=== PATIENT | female | born 1995 | race Native Hawaiian/Other Pacific Islander ===

== ENCOUNTER 2018-09-02 18:29 | Emergency (ER) | payer BC ==
[2018-09-02 18:30] VITALS: BMI 31.9
[2018-09-02 18:58] VITALS: BP 138/96; PULSE 83; RESP 18; TEMP 98; O2SAT 100
--- NOTE | 2018-09-02 19:42 | ED PDOC ---
Lower Extremity Pain/Injury Time Seen by Provider: 09/02/18 19:06 Chief Complaint (Nursing): Lower Extremity Problem/Injury Chief Complaint (Provider): Left Foot Pain History Per: Patient History/Exam Limitations: no limitations Onset/Duration Of Symptoms: Hrs (around 1600 today) Current Symptoms Are (Timing): Still Present Additional Complaint(s): 23 year old female presents to the ED for evaluation of left foot pain localized to the sole which began around 1600 today while standing at work. Patient notes that the pain initially was shooting up her leg, and worse when bearing weight. Denies fall, injury, numbness, and tingling. A couple years ago, she reports having similar pain, but was told it was a sprain. She reports standing for long periods of time at work LNMP: last month Past Medical History Reviewed: Historical Data, Nursing Documentation, Vital Signs Vital Signs: Last Vital Signs Temp 98.0 F 09/02/18 18:57 Pulse 83 09/02/18 18:57 Resp 18 09/02/18 18:57 BP 138/96 H 09/02/18 18:57 Pulse Ox 100 09/02/18 18:57 Primary Care Provider: Christi Suarez - Medical History PMH: Asthma - Surgical History Surgical History: No Surg Hx - Family History Family History: States: Unknown Family Hx - Social History Current smoker - smoking cessation education provided: No Alcohol: None Drugs: Denies - Home Medications Home Medications: Ambulatory Orders Medication Instructions Recorded No Known Home Med 06/13/15 - Allergies Allergies/Adverse Reactions: Allergies Allergy/AdvReac Type Severity Reaction Status Date / Time ibuprofen [From Motrin] Allergy VOMITING Verified 09/02/18 18:59 Review of Systems ROS Statement: Except As Marked, All Systems Reviewed And Found Negative Musculoskeletal: Positive for: Foot Pain (left foot pain localized to the sole, worse with weight bearing) Neurological: Negative for: Numbness (or tingling) Physical Exam - Reviewed Nursing Documentation Reviewed: Yes Vital Signs Reviewed: Yes - Physical Exam Comments: GENERAL APPEARANCE: Patient is awake, alert, oriented x 3, in no acute distress. SKIN: Warm, dry. LEFT LOWER EXTREMITY: capillary refill less than 2 seconds. Foot: full ROM, (+) diffuse tenderness to mid sole of foot, (-) swelling, (-) deformity. CARDIOVASCULAR: (+) distal pulse. NEUROLOGIC: (+) distal sensation. Neurovascular intact. - ECG O2 Sat by Pulse Oximetry: 100 (RA) Pulse Ox Interpretation: Normal Medical Decision Making Medical Decision Making: Time: 1913 Initial Impression: possible plantar fasciitis Initial Plan: --Left foot XR --Tylenol 650mg PO XR read by me as no acute fracture or dislocation. Patient advised this is a preliminary read and if there are any discrepancies in the official report, she will be notified within 24 hours. Discussed results, diagnosis, treatment, return precautions and f/u with pt who is understanding, in agreement and stable for dc Scribe Attestation: Documented by Rufina Gaytan, acting as a scribe for Enzo Ramirez PA-C. Provider Scribe Attestation: All medical record entries made by the Scribe were at my direction and personally dictated by me. I have reviewed the chart and agree that the record accurately reflects my personal performance of the history, physical exam, medical decision making, and the department course for this patient. I have also personally directed, reviewed, and agree with the discharge instructions and disposition. Disposition - Clinical Impression Clinical Impression: Plantar fasciitis of left foot, Foot pain - Patient ED Disposition Is Patient to be Admitted: No Counseled Patient/Family Regarding: Studies Performed, Diagnosis, Need For Followup - Disposition Referrals: Podiatry Clinic [Outside] Consuelo Lozano DPM [Medical Doctor] - Disposition: Routine/Home Disposition Time: 20:21 Condition: STABLE Additional Instructions: Return to ED for new or worsening symptoms. Follow up with foot doctor or clinic as listed. Rest, ice and elevate. massage foot. Take tylenol for pain. Wear shoes with good soles Instructions: Heel Pain (Caused by Plantar Fasciitis), Metatarsalgia, Plantar Fasciitis Exercises Forms: [facility] ED School/Work Excuse Print Language: UKRAINIAN - POA Present On Arrival: None
--- NOTE | 2018-09-03 11:00 | RAD ---
Date of service: 09/02/2018 PROCEDURE: Left Foot Radiographs. HISTORY: Pain. No history of recent/ related trauma provided. COMPARISON: None. TECHNIQUE: 3 views obtained. FINDINGS: BONES: Normal. No fracture. JOINTS: Normal. SOFT TISSUES: Normal. OTHER FINDINGS: None. IMPRESSION: Normal left foot radiographs.
== END 2018-09-02 20:38 | disposition home or self-care (01) ==
LOC: H.ER 18:29
DX: M72.2 Plantar fascial fibromatosis (principal)